=== PATIENT | female | born 1955 | race Two or more races ===

== ENCOUNTER 2020-11-26 10:29 | Outpatient (CLI) | payer OTHER | END 2020-11-26 10:36 | disposition home or self-care (01) | LOC: SONOGRAMA 10:29 | PROVIDERS: ATTEND Pathology Anatomic Pathology & Clinical Pathology | DX: E04.1 Nontoxic single thyroid nodule (principal); E06.5 Other chronic thyroiditis; E04.8 Other specified nontoxic goiter; D34 Benign neoplasm of thyroid gland; E06.3 Autoimmune thyroiditis ==

== ENCOUNTER 2023-06-15 10:19 | Outpatient (CLI) | payer OTHER | END 2023-06-15 10:25 | disposition home or self-care (01) | LOC: SONOGRAMA 10:19 | PROVIDERS: ATTEND Pathology Anatomic Pathology & Clinical Pathology | DX: D34 Benign neoplasm of thyroid gland (principal); E06.3 Autoimmune thyroiditis; E04.1 Nontoxic single thyroid nodule ==